=== PATIENT | female | born 1945 | race Caucasian/White ===

== ENCOUNTER 2018-03-25 13:03 | Emergency (ER) | payer BC, OTHER ==
[~2018-03-25] VITALS: Ht 167.6 cm; Wt 84.8 kg
[~2018-03-25 13:03] MED LIST: ALEN70TA51 PO; GLIP5TAB13 PO; LISI10TA5 PO; MONT10TA25 PO; SIMV20TA2 PO
[2018-03-25 13:32] VITALS: BP_SYST 125
[2018-03-25 14:46] LABS: ANION GAP 7 (5-15); BASOPHILS # (AUTO) 0.1 K/uL (0.0-0.2); BASOPHILS % (AUTO) 0.9 % (0.0-2.0); CHLORIDE 107 mmol/L (98-107); CREATININE 0.78 mg/dL (0.55-1.30); GLUCOSE 181 mg/dL (70-99); HEMATOCRIT 39.5 % (36-48); HEMOGLOBIN 13.3 g/dL (12.0-16.0); LYMPHOCYTES # (AUTO) 0.6 K/uL (1.0-5.5); LYMPHOCYTES % (AUTO) 10.5 % (20.5-51.5); MEAN CORPUSCULAR HEMOGLOBIN 30 pg (27-31); MEAN CORPUSCULAR HGB CONC 34 % (32-36); MEAN CORPUSCULAR VOLUME 90 fL (79.0-98.0); MONOCYTES # (AUTO) 0.3 K/uL (0.0-1.0); MONOCYTES % (AUTO) 4.9 % (1.7-9.3); NEUTROPHILS # (AUTO) 4.6 K/uL (1.8-7.7); NEUTROPHILS % (AUTO) 83.7 % (40.0-70.0); PLATELET COUNT (AUTO) 154 K/uL (130-430); POTASSIUM 3.7 mmol/L (3.5-5.1); RED BLOOD CELL COUNT(AUTO) 4.41 MIL/uL (4.2-6.2); RED CELL DISTRIBUTION WIDTH 12.6 % (9.0-15.0); SODIUM SERUM 141 mmol/L (136-145); UREA NITROGEN, BLOOD 16 mg/dL (8-21); WHITE BLOOD COUNT (AUTO) 5.6 K/uL (4.8-10.8)
[2018-03-25 14:51] LABS: ALANINE AMINOTRANSFERASE 15 U/L (12-78); ALBUMIN 3.5 g/dL (3.4-4.8); ASPARTATE AMINOTRANSFERASE 11 U/L (10-37); TOTAL BILIRUBIN 0.7 mg/dL (0.0-1.0)
[2018-03-25 18:28] VITALS: BP_SYST 125
== END 2018-03-25 16:21 | disposition home or self-care (01) ==
LOC: SED 13:03
DX: S80.02XA Contusion of left knee, initial encounter (principal); S70.02XA Contusion of left hip, initial encounter; S30.1XXA Contusion of abdominal wall, initial encounter; E78.5 Hyperlipidemia, unspecified; E11.9 Type 2 diabetes mellitus without complications; I10 Essential (primary) hypertension; Z96.642 Presence of left artificial hip joint; Z79.899 Other long term (current) drug therapy; Z88.1 Allergy status to other antibiotic agents; W10.9XXA Fall (on) (from) unspecified stairs and steps, initial encounter; Y93.89 Activity, other specified; Y92.89 Other specified places as the place of occurrence of the external cause; Y99.8 Other external cause status
CPT/HCPCS: 36415; 71045; 71100; 73502; 73552; 73590-TC; 80053; 85025; 99285

== ENCOUNTER 2019-08-03 15:38 | Emergency (ER) | payer OTHER ==
[~2019-08-03] VITALS: Ht 160 cm; Wt 77.1 kg
--- NOTE | 2019-08-03 15:38 | NUR ---
Patient to ER bed 6 to gown for evaluation. Side rails up.
[2019-08-03 15:39] VITALS: BP_SYST 147
--- NOTE | 2019-08-03 15:39 | NUR ---
Patient is awake, alert, and oriented x4. Her is at bedside. Patient was ambulating to restroom from her bedroom, her feet got caught in an area rug and she tripped and fell. Her head struck the tile of the floor, no knock out, no nausea, no dizziness.
--- NOTE | 2019-08-03 15:52 | NUR ---
ER Dr. Weiss at bedside examining patient.
[2019-08-03] MEDS ORDERED: NACL 0.9% 1,000 ML IV ONE (16:00)
[2019-08-03] MEDS ORDERED: BACITRACIN 1 GM OINT TP ONE (16:00)
[2019-08-03] MEDS ORDERED: LIDOCAINE 1% 10 MG/ML, 20 ML MDV SUBCUT ONE (16:00)
[2019-08-03] MEDS ORDERED: DIPH-TET-PERTUS Vaccine 0.5 ML VIAL (ADACEL) I.M. ONE (16:00)
[2019-08-03] MEDS ORDERED: MORPHINE 4 MG/ML INJ. SYRINGE IM ONE (16:45)
--- NOTE | 2019-08-03 17:51 | NUR ---
Patient given written and verbal discharge instructions and verbalizes understanding. ER MD discussed with patient the results and treatment provided. Patient in stable condition. ID arm band removed. Rx of tylenol given. Patient educated on pain management and to follow up with PMD. Pain Scale 0/10. Opportunity for questions provided and answered. Medication side effect fact sheet provided.
[2019-08-03 17:55] VITALS: BP_SYST 147
== END 2019-08-03 17:51 | disposition home or self-care (01) ==
LOC: SED 15:38
DX: S01.112A Laceration without foreign body of left eyelid and periocular area, initial encounter (principal); E78.5 Hyperlipidemia, unspecified; E11.9 Type 2 diabetes mellitus without complications; I10 Essential (primary) hypertension; Z90.49 Acquired absence of other specified parts of digestive tract; Z79.899 Other long term (current) drug therapy; Z88.1 Allergy status to other antibiotic agents; W01.198A Fall on same level from slipping, tripping and stumbling with subsequent striking against other object, initial encounter; Y93.89 Activity, other specified; Y92.098 Other place in other non-institutional residence as the place of occurrence of the external cause; Y99.8 Other external cause status
CPT/HCPCS: 12013; 36415; 70450; 70486; 71045; 73030; 82550; 84484; 90471; 90715; 96372; 99285; J2001; J2270

== ENCOUNTER 2020-02-28 19:27 | Emergency (ER) | payer OTHER ==
[~2020-02-28] VITALS: Ht 172.7 cm; Wt 81.6 kg
[~2020-02-28 19:27] MED LIST changes: -ALEN70TA51 PO; +ALEN70TA80 PO; -MONT10TA25 PO; +MONT10TA27 PO
[2020-02-28 19:30] VITALS: BP_SYST 150
[2020-02-28] MEDS ORDERED: DIPH-TET-PERTUS Vaccine 0.5 ML VIAL (ADACEL) I.M. ONE (21:45)
[2020-02-28] MEDS ORDERED: HYDROcodone/ACETAMIN 5-325 MG TAB (NORCO/ VICODIN) PO ONE (22:30)
[2020-02-28] MEDS ORDERED: BACITRACIN 1 GM OINT TP ONE (22:42)
[2020-02-28 23:40] VITALS: BP_SYST 139
== END 2020-02-28 23:40 | disposition home or self-care (01) ==
LOC: SED 19:27
DX: S61.511A Laceration without foreign body of right wrist, initial encounter (principal); S20.211A Contusion of right front wall of thorax, initial encounter; S00.03XA Contusion of scalp, initial encounter; S80.211A Abrasion, right knee, initial encounter; I10 Essential (primary) hypertension; E11.9 Type 2 diabetes mellitus without complications; E78.5 Hyperlipidemia, unspecified; Z79.899 Other long term (current) drug therapy; Z88.1 Allergy status to other antibiotic agents; W22.8XXA Striking against or struck by other objects, initial encounter; Y93.89 Activity, other specified; Y92.89 Other specified places as the place of occurrence of the external cause; Y99.8 Other external cause status
CPT/HCPCS: 70450-TC; 71250-TC; 72125-TC; 73564; 90715; 99285